=== PATIENT | male | born 1950 | race Caucasian/White ===

== ENCOUNTER 2016-12-03 17:40 | Emergency (ER) | payer BC, MEDICARE ==
[~2016-12-03] VITALS: Ht 180.3 cm; Wt 79.4 kg
[~2016-12-03 17:40] MED LIST: AMLO5TAB2 PO; ASPI81TA9 PO; FENO160T PO; METO100T11 PO; OMEG300C PO; OMEP40CA5 PO
[2016-12-03 17:53] VITALS: BP 147/83
[2016-12-03 18:14] LABS: BASO # 0.1 x10^3/uL (0.0-0.2); BASO % 1 % (0-3); EOS % 6 % (0-3); HEMATOCRIT 40.9 % (39.0-53.0); HEMOGLOBIN 14.1 g/dL (13.0-17.5); LYMPH # 2.1 x10^3/uL (1.0-4.8); LYMPH % 28 % (24-48); MEAN CORPUSCULAR HEMOGLOBIN 30 pg (25-35); MEAN CORPUSCULAR HGB CONC 34 g/dL (31-37); MEAN CORPUSCULAR VOLUME 88 fL (79-100); MONO % 9 % (0-9); NEUT % 56 % (31-73); PLATELET COUNT 310 x10^3/uL (140-400); RED BLOOD COUNT 4.64 x10^6/uL (4.30-5.70); RED CELL DISTRIBUTION WIDTH 14.2 % (11.5-14.5); WHITE BLOOD COUNT 7.4 x10^3/uL (4.0-11.0)
[2016-12-03 18:21] LABS: CALCIUM 8.7 mg/dL (8.5-10.1)
--- NOTE | 2016-12-03 18:36 | PHYS DOC ---
Past Medical History Past Medical History: Alcoholism, High Cholesterol, Heart Disease, Hypertension Past Surgical History: Angioplasty Additional Past Surgical Histo: CARDIAC STENTS X 2 Alcohol Use: Heavy Drug Use: None Adult General Chief Complaint Chief Complaint: CHEST PAIN HPI HPI Patient is a 66 year old male who presents with 4 days of vague chest discomfort. States he hasn't migratory chest discomfort over these 4 days that are sometimes sharp, sometimes achy. He denies fever or chills, cough, dyspnea, lightheadedness, palpitations, diaphoresis, exertional symptoms, nausea or vomiting, diarrhea, leg pain or swelling, hemoptysis. Review of Systems Review of Systems Constitutional: Denies fever or chills [] Eyes: Denies change in visual acuity, redness, or eye pain [] HENT: Denies nasal congestion or sore throat [] Respiratory: Denies cough or shortness of breath [] Cardiovascular: No additional information not addressed in HPI [] GI: Denies abdominal pain, nausea, vomiting, bloody stools or diarrhea [] : Denies dysuria or hematuria [] Musculoskeletal: Denies back pain or joint pain [] Integument: Denies rash or skin lesions [] Neurologic: Denies headache, focal weakness or sensory changes [] Endocrine: Denies polyuria or polydipsia [] Allergies Allergies Allergies Coded Allergies Type Severity Reaction Last Updated Verified No Known Drug Allergies 09/30/14 No Physical Exam Physical Exam Constitutional: Well developed, well nourished, no acute distress, non-toxic appearance. [] HENT: Normocephalic, atraumatic, bilateral external ears normal, oropharynx moist, nose normal. [] Eyes: PERRLA, EOMI. [] Neck: Normal range of motion, supple. [] Cardiovascular:Heart rate regular rhythm [] Lungs & Thorax: Bilateral breath sounds clear to auscultation [] Abdomen: Bowel sounds normal, soft, no tenderness. [] Skin: Warm, dry, no erythema, no rash. [] Back: Normal range of motion. [] Extremities: No tenderness, ROM intact, no edema, no palpable cord. [] Neurologic: Alert and oriented X 3, normal motor function, normal sensory function, no focal deficits noted. [] Psychologic: Affect normal, judgement normal, mood normal. [] Current Patient Data Vital Signs Vital Signs Date Time Temp Pulse Resp B/P Pulse Ox O2 Delivery O2 Flow Rate FiO2 12/03/16 18:42 82 16 136/87 100 12/03/16 17:53 98.4 Room Air 98.4 Lab Values Laboratory Tests Test 12/03/16 17:50 White Blood Count 7.4x10^3/uL (4.0-11.0) Red Blood Count 4.64x10^6/uL (4.30-5.70) Hemoglobin 14.1g/dL (13.0-17.5) Hematocrit 40.9% (39.0-53.0) Mean Corpuscular Volume 88fL (79-100) Mean Corpuscular Hemoglobin 30pg (25-35) Mean Corpuscular Hemoglobin Concent 34g/dL (31-37) Red Cell Distribution Width 14.2% (11.5-14.5) Platelet Count 310x10^3/uL (140-400) Neutrophils (%) (Auto) 56% (31-73) Lymphocytes (%) (Auto) 28% (24-48) Monocytes (%) (Auto) 9% (0-9) Eosinophils (%) (Auto) 6% (0-3) H Basophils (%) (Auto) 1% (0-3) Neutrophils # (Auto) 4.1x10^3uL (1.8-7.7) Lymphocytes # (Auto) 2.1x10^3/uL (1.0-4.8) Monocytes # (Auto) 0.7x10^3/uL (0.0-1.1) Eosinophils # (Auto) 0.4x10^3/uL (0.0-0.7) Basophils # (Auto) 0.1x10^3/uL (0.0-0.2) Sodium Level 140mmol/L (136-145) Potassium Level 4.0mmol/L (3.5-5.1) Chloride Level 103mmol/L (98-107) Carbon Dioxide Level 28mmol/L (21-32) Anion Gap 9 (6-14) Blood Urea Nitrogen 12mg/dL (8-26) Creatinine 1.0mg/dL (0.7-1.3) Estimated GFR (Cockcroft-Gault) 75.0 Glucose Level 128mg/dL (70-99) H Calcium Level 8.7mg/dL (8.5-10.1) Troponin I Quantitative < 0.017ng/mL (0.000-0.055) Laboratory Tests 12/03/16 17:50 Laboratory Tests 12/03/16 17:50 EKG EKG EKG as interpreted by me as normal sinus rhythm, rate 83, no ST-T changes, normal intervals, no ectopy Radiology/Procedures Radiology/Procedures Chest xray as interpreted by me with no acute cardiopulmonary disease process Course & Med Decision Making Course & Med Decision Making Pertinent Labs and Imaging studies reviewed. (See chart for details) Workup is unremarkable. Encouraged primary care and cardiology follow-up. Return precautions given. He understands and agrees with plan. Dragon Disclaimer Dragon Disclaimer This electronic medical record was generated, in whole or in part, using a voice recognition dictation system. Departure Departure Impression: Primary Impression: Chest pain Disposition: HOME, SELF-CARE Condition: STABLE Referrals: LYUBOV CHACKO MD (PCP) Patient Instructions: Chest Pain (Nonspecific), [id number] Additional Instructions: Follow-up with your primary care doctor and produce assistant. Return for any concerns. Problem Qualifiers Primary Impression: Chest pain Chest pain type: other chest pain Qualified Code: R07.89 - Other chest pain Xavier RAGSDALE MD Dec 03, 2016 18:36
--- NOTE | 2016-12-04 09:01 | RAD ---
Chest, 2 views, 12/03/2016: History: Chest discomfort Comparison is made to a study from 06/17/2016. The heart size is normal. Coronary artery radiopacities are projected over the anterior aspect of the heart compatible with calcifications and/or a stent. The pulmonary vascularity is normal. No pulmonary infiltrates are seen. There is no evidence of pleural fluid. Minimal spurring is present in the spine. IMPRESSION: No acute cardiopulmonary abnormality is detected.
--- NOTE | 2016-12-04 11:37 | EKG ---
[facility] [address] [place] [address] Test Date: 2016-12-03 Test Time: 17:47:13 Pat Name: FORTINO TORRES Department: Room: Gender: M Wad Impregnator: : 1950 Requested By: Xavier RAGSDALE Order Number: [id number] Reading MD: Azalia Esteban Measurements Intervals [place] Rate: 83 P: 41 SD: 146 QRS: 0 QRSD: 86 T: 32 QT: 362 QTc: 426 Interpretive Statements SINUS RHYTHM LEFTWARD AXIS NORMAL ECG RI6.01 Compared to ECG 06/17/2016 07:39:50 Left-axis deviation now present Electronically Signed On 12-05-2016 0:38:16 [employer] by Azalia Esteban
== END 2016-12-03 18:54 | disposition home or self-care (01) ==
LOC: ER 17:40
DX: R07.89 Other chest pain (principal); E78.00 Pure hypercholesterolemia, unspecified; I10 Essential (primary) hypertension; Z95.5 Presence of coronary angioplasty implant and graft
CPT/HCPCS: 36415; 71020; 80048; 84484; 85027; 93005; 99285-25

== ENCOUNTER → 2019-05-01 | Outpatient (CLI) | payer MEDICARE ==
[2016-12-03 18:42] VITALS: BP 136/87
[~2019-05-01] MED LIST changes: +AMLO5TAB10 PO; -AMLO5TAB2 PO; +ASPI-612 PO; -ASPI81TA9 PO; +METO-247 PO; -METO100T11 PO
[2019-05-03 11:17] LABS: HCV ULTRA QUANT PCR HCV Not Detected IU/mL (.)
== END | disposition home or self-care (01) ==
LOC: LAB 11:32
PROVIDERS: ATTEND Physician Assistant
DX: R63.4 Abnormal weight loss (principal); K76.89 Other specified diseases of liver
CPT/HCPCS: 36415; 82105; 86705; 86709; 87340; 87521

== ENCOUNTER → 2019-11-19 | Outpatient (CLI) | payer MEDICARE ==
[2016-12-03 18:42] VITALS: BP 136/87
[~2019-11-19] MED LIST changes: +CONTRAST GIVEN. MC PRN; +IOHEXOL 300 MG/ML 100ML VIAL. IV ONE; +OMEP40CA45 PO; -OMEP40CA5 PO
[2019-11-19 10:58] LABS: CREATININE 0.7 mg/dL (0.7-1.3); GFR 112.1
--- NOTE | 2019-11-19 14:03 | RAD ---
Examination: CT ANGIOGRAPHY ABDOMEN History: Abdominal pain Comparison/Correlation: MRI of the abdomen without and with contrast 04/30/2019 performed at an outside facility Findings: Axial images of the abdomen were obtained following IV contrast according to arteriography protocol. Sagittal and coronal reformatted images were provided. Large calcific density is present at the superior aspect of the celiac artery origin. 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 Scattered calcific involvement of the proximal superior mesenteric artery is present without significant stenosis. Inferior mesenteric artery is patent without significant stenosis. No significant stenosis identified involving the celiac, superior mesenteric, and inferior mesenteric artery or their visualized branches more distally. Scattered calcific involvement of the abdominal aorta and iliac arteries noted. Atheromatous involvement of the distal abdominal aorta and proximal common iliac arteries noted. Infrarenal abdominal aneurysm near the bifurcation is present measuring 2 cm transverse by 1.8 cm anteroposterior. This is best seen on coronal image 26 of series 5. This extends to the bifurcation. Bilateral main arteries are patent without significant stenosis. Hypervascular lesions involving the left hepatic dome at the lateral segment are present. These are ill-defined. One of these is present extending into the subcapsular region measuring 0.8 cm x 1 cm x 1.1 cm longitudinal. Additional lesion measuring 1 cm x 0.9 cm is present on axial image 268. Right hepatic lobe lesion is present more inferiorly extending into the subcapsular aspect on axial image 423 of series 4 measuring up to 1.7 cm x 0.8 cm. Subtle hypervascular ill-defined lesion on axial image 400 within the right hepatic lobe inferiorly is present measuring up to 1.3 cm diameter. Spleen is unremarkable. Pancreas and adrenal glands are normal. Left renal cyst at the lower pole and trace present. Right renal upper pole low-attenuation lesion is present likely representing a cyst but is too small to characterize. No enlarged abdominal lymph nodes. No abdominal ascites. No extraluminal gas. Segmental wall thickening of left upper quadrant jejunal loops of bowel probably representing contraction or spasm noted without surrounding inflammation. Appendix is normal. Moderate L3-4 disc space narrowing is present. 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 No significant stenosis of the superior or inferior mesenteric arteries. Distal abdominal aortic aneurysm measuring 2 cm in maximum diameter. Most of the liver lesions are have a corresponding finding on a previous outside MRI exam in which hemangiomas were described to be present. There is hypervascularity involving the left hepatic lobe lateral segment of the superior subcapsular aspect likely representing transient hepatic attenuation difference. This is not evident on previous examination likely due to differences in timing of scanning following IV contrast injection. PQRS Compliance Statement: One or more of the following individualized dose reduction techniques were utilized for this examination: 1. Automated exposure control 2. Adjustment of the mA and/or kV according to patient size 3. Use of iterative reconstruction technique Electronically signed by: David Galindo MD (11/19/2019 2:00 PM) [facility]
== END | disposition home or self-care (01) ==
LOC: CT 10:22
PROVIDERS: ATTEND Internal Medicine
DX: I77.4 Celiac artery compression syndrome (principal); I71.4 Abdominal aortic aneurysm, without rupture; I70.0 Atherosclerosis of aorta; K76.89 Other specified diseases of liver; N28.1 Cyst of kidney, acquired; K55.059 Acute (reversible) ischemia of intestine, part and extent unspecified
CPT/HCPCS: 36415; 74175; 82565; 84520; Q9967